=== PATIENT | male | born 1955 | race Caucasian/White ===

== ENCOUNTER → 2017-10-11 | Outpatient (CLI) | payer OTHER ==
[~2017-10-11] MED LIST: ACID CONTROL PO; ASPI-1012 PO; DULOXETINE PO; FLUT1AER IH; LEVO125T11 PO; LOSA50TA37 PO; PHEN100C9 PO; PHEN200C5 PO; TAMS0.4C32 PO; THEO400T3 PO
== END | disposition home or self-care (01) ==
LOC: OIH 11:42
PROVIDERS: ATTEND Family Medicine
DX: M47.892 Other spondylosis, cervical region (principal); M43.12 Spondylolisthesis, cervical region; M48.02 Spinal stenosis, cervical region; M25.78 Osteophyte, vertebrae
CPT/HCPCS: 72040; 72100

== ENCOUNTER → 2019-04-05 | Outpatient (CLI) | payer OTHER ==
[~2019-04-05] MED LIST changes: -LOSA50TA37 PO; +LOSA50TA64 PO
== END | disposition home or self-care (01) ==
LOC: RAH 13:45
PROVIDERS: ATTEND Family Medicine
DX: I82.611 Acute embolism and thrombosis of superficial veins of right upper extremity (principal)
CPT/HCPCS: 93971

== ENCOUNTER 2021-01-02 14:17 | Inpatient (IN) | payer OTHER ==
[~2021-01-02] VITALS: Ht 182.9 cm; Wt 98.4 kg
[2021-01-02 14:29] VITALS: BP 101/75
[2021-01-02 15:54] LABS: BASOPHILS % (AUTO) 0.4 % (0.0-5.0); EOSINOPHILS % (AUTO) 3.9 % (0.0-8.0); HEMATOCRIT 38.5 % (42-54); LYMPHOCYTES % (AUTO) 17.5 % (21.0-51.0); MEAN CORPUSCULAR HGB CONC 33.5 g/dL (32.0-36.0); MEAN CORPUSCULAR VOLUME 98.5 fL (79-99); MONOCYTES % (AUTO) 10.9 % (3.0-13.0); NEUTROPHILS % (AUTO) 67.1 % (40.0-77.0); PLATELET COUNT (AUTO) 225 K/uL (130-400); RED BLOOD CELL COUNT(AUTO) 3.91 MIL/uL (4.50-6.20)
[2021-01-02 16:04] LABS: CREATININE 1.4 mg/dL (0.5-1.5)
[2021-01-02] MEDS ORDERED: GLUCAGON 1MG KIT 1 MG ML IM PRN (17:00)
[2021-01-02] MEDS ORDERED: RENAL DOSE IV PRN (17:00)
[2021-01-02] MEDS ORDERED: DEXTROSE 50%-WATER 50 ML DISP.SYRIN IV PRN (17:00)
[2021-01-02] MEDS ORDERED: KETOROLAC 30MG VIAL (30MG/ML) IV ONE (17:00)
[2021-01-02] MEDS ORDERED: 0.9% NACL 250ML IVPB ONE (17:00)
[2021-01-02] MEDS ORDERED: ONDANSETRON 4MG INJ IVP PRN (17:00)
[2021-01-02] MEDS ORDERED: VANCOMYCIN 1G VIAL IVPB ONE (17:00)
[2021-01-02] MEDS ORDERED: VANCOMYCIN PROTOCOL PER PHARMACY IV SCH (17:00)
[2021-01-02] MEDS ORDERED: ZOSYN 3.375GM+NS 50ML 3.38 GM in 0.9%NACL 50ML 50 ML IV SCH (17:00)
[2021-01-02] MEDS ORDERED: 0.9%NACL 50ML 50 ML IV ONE (17:18)
[2021-01-02] MEDS: ZOSYN 3.375GM+NS 50ML 50 ML IV SCH ×2 (17:23→23:38)
[2021-01-02] MEDS ORDERED: ACETAMINOPHEN 325 MG TAB PO PRN (17:30)
[2021-01-02] MEDS ORDERED: COMPOUND IV REFRIGERATED 1 EACH IVSOLN MISC PRN (17:30)
[2021-01-02 18:36] VITALS: BP 113/78
[2021-01-02 19:30] VITALS: BP 118/58
[2021-01-02] MEDS ORDERED: INSULIN HUMULIN R 100 UNIT/ML 3ML SQ SCH (21:00)
[2021-01-02 23:00] VITALS: BP 124/74
[2021-01-02] MEDS ORDERED: 0.9%NACL 100ML 100 ML ONE (23:23)
[2021-01-02] MEDS: FAMOTIDINE 20MG TAB PO SCH (23:30)
[2021-01-02] MEDS: LACTULOSE 20 GM/30 ML UDCUP PO SCH (23:30)
[2021-01-03] VITALS (7 sets, daily range): BP systolic 107–155; BP diastolic 71–98
[2021-01-03] MEDS: VANCOMYCIN 1.25GM/NS 250ML IVPB SCH ×6 (01:00→21:02)
[2021-01-03 06:41] LABS: HEMATOCRIT 40.2 % (42-54); MEAN CORPUSCULAR HEMOGLOBIN 32.3 pg (27.0-33.0); MEAN CORPUSCULAR HGB CONC 32.6 g/dL (32.0-36.0); MEAN CORPUSCULAR VOLUME 99.3 fL (79-99); RED BLOOD CELL COUNT(AUTO) 4.05 MIL/uL (4.50-6.20); RED CELL DISTRIBUTION WIDTH 12.9 % (11.0-15.5)
[2021-01-03 07:05] LABS: CREATININE 1.4 mg/dL (0.5-1.5); POTASSIUM 3.9 mmol/L (3.5-5.1)
[2021-01-03] MEDS ORDERED: 0.9%NACL 50ML 50 ML IV ONE (07:07)
[2021-01-03] MEDS: ZOSYN 3.375GM+NS 50ML 50 ML IV SCH ×2 (07:23→16:39)
[2021-01-03] MEDS: IPRATROPIUM/ALBUTEROL SULFATE 3 ML SOLUTION IH PRN ×2 (07:24→15:43)
[2021-01-03 07:35] LABS: HEMOGLOBIN A1C 5.4 % (4.0-6.0)
[2021-01-03] MEDS: ASPIRIN 325MG TAB PO SCH (08:14)
[2021-01-03] MEDS: LOSARTAN 50 MG TABLET PO SCH (08:14)
[2021-01-03] MEDS: LACTULOSE 20 GM/30 ML UDCUP PO SCH ×2 (08:14→21:15)
[2021-01-03] MEDS: FAMOTIDINE 20MG TAB PO SCH ×2 (08:14→21:15)
[2021-01-03] MEDS ORDERED: LEVOTHYROXINE 125 MCG TABLET PO SCH (09:00)
[2021-01-03] MEDS ORDERED: PHENYTOIN SODIUM 100 MG ERCAP PO SCH (09:00)
[2021-01-03] MEDS: PHENYTOIN SODIUM 100 MG ERCAP PO SCH ×3 (09:25→21:15)
[2021-01-03] MEDS: MORPHINE 2 MG SYG IVP PRN (09:25)
[2021-01-03] MEDS: TAMSULOSIN HCL 0.4 MG CAP.ER.24H PO SCH (21:15)
[2021-01-04] VITALS (15 sets, daily range): BP systolic 122–164; BP diastolic 79–104
[2021-01-04] MEDS: ZOSYN 3.375GM+NS 50ML 50 ML IV SCH ×3 (01:00→18:15)
[2021-01-04] MEDS: IPRATROPIUM/ALBUTEROL SULFATE 3 ML SOLUTION IH PRN ×4 (01:23→23:26)
[2021-01-04] MEDS: LEVOTHYROXINE 125 MCG TABLET PO SCH (06:54)
[2021-01-04 07:39] LABS: HEMATOCRIT 38.8 % (42-54); MEAN CORPUSCULAR HEMOGLOBIN 32.3 pg (27.0-33.0); RED BLOOD CELL COUNT(AUTO) 3.96 MIL/uL (4.50-6.20); RED CELL DISTRIBUTION WIDTH 12.8 % (11.0-15.5); WHITE BLOOD COUNT (AUTO) 4.9 K/uL (4.8-10.8)
[2021-01-04 07:49] LABS: CREATININE 1.2 mg/dL (0.5-1.5); POTASSIUM 3.3 mmol/L (3.5-5.1)
[2021-01-04] MEDS: FAMOTIDINE 20MG TAB PO SCH ×2 (09:30→20:39)
[2021-01-04] MEDS: PHENYTOIN SODIUM 100 MG ERCAP PO SCH ×3 (09:30→20:39)
[2021-01-04] MEDS: ASPIRIN 325MG TAB PO SCH (09:30)
[2021-01-04] MEDS: LACTULOSE 20 GM/30 ML UDCUP PO SCH ×2 (09:30→20:39)
[2021-01-04] MEDS: LOSARTAN 50 MG TABLET PO SCH (09:30)
[2021-01-04] MEDS: VANCOMYCIN 1.25GM/NS 250ML IVPB SCH ×4 (11:00→21:16)
[2021-01-04] MEDS ORDERED: KCL 20 MEQ ERTAB PO ONE (13:30)
[2021-01-04] MEDS: TAMSULOSIN HCL 0.4 MG CAP.ER.24H PO SCH (20:39)
[2021-01-05] VITALS (7 sets, daily range): BP systolic 127–146; BP diastolic 78–98
[2021-01-05] MEDS ORDERED: 0.9% NACL 250ML 250 ML ONE (00:28)
[2021-01-05] MEDS: ZOSYN 3.375GM+NS 50ML 50 ML IV SCH ×3 (01:31→22:15)
[2021-01-05] MEDS: LEVOTHYROXINE 125 MCG TABLET PO SCH (05:34)
[2021-01-05] MEDS: LOSARTAN 50 MG TABLET PO SCH (08:24)
[2021-01-05] MEDS: FAMOTIDINE 20MG TAB PO SCH ×2 (08:24→20:33)
[2021-01-05] MEDS: PHENYTOIN SODIUM 100 MG ERCAP PO SCH ×3 (08:25→20:34)
[2021-01-05] MEDS: LACTULOSE 20 GM/30 ML UDCUP PO SCH ×2 (08:25→20:33)
[2021-01-05] MEDS: ASPIRIN 325MG TAB PO SCH (08:25)
[2021-01-05] MEDS: IPRATROPIUM/ALBUTEROL SULFATE 3 ML SOLUTION IH PRN (09:29)
[2021-01-05] MEDS ORDERED: KCL 20 MEQ ERTAB PO SCH (09:30)
[2021-01-05] MEDS: FLUTICASONE/VILANTEROL 1 EACH AER.POW.BA IH SCH (12:41)
[2021-01-05] MEDS: VANCOMYCIN 1.25GM/NS 250ML IVPB SCH ×4 (12:43→20:35)
[2021-01-05] MEDS ORDERED: LIDOCAINE HCL 1% 20 ML VIAL INJ SCH (19:30)
[2021-01-05] MEDS: TAMSULOSIN HCL 0.4 MG CAP.ER.24H PO SCH (20:33)
[2021-01-06 02:55] VITALS: BP 144/99
[2021-01-06 05:26] LABS: HEMATOCRIT 39.5 % (42-54); MEAN CORPUSCULAR HEMOGLOBIN 32.4 pg (27.0-33.0); MEAN CORPUSCULAR HGB CONC 32.9 g/dL (32.0-36.0); MEAN CORPUSCULAR VOLUME 98.5 fL (79-99); RED BLOOD CELL COUNT(AUTO) 4.01 MIL/uL (4.50-6.20); RED CELL DISTRIBUTION WIDTH 12.9 % (11.0-15.5); WHITE BLOOD COUNT (AUTO) 5.7 K/uL (4.8-10.8)
[2021-01-06] MEDS: ZOSYN 3.375GM+NS 50ML 50 ML IV SCH ×3 (05:26→21:05)
[2021-01-06] MEDS: LEVOTHYROXINE 125 MCG TABLET PO SCH (05:26)
[2021-01-06 05:36] LABS: CREATININE 1.1 mg/dL (0.5-1.5); POTASSIUM 3.9 mmol/L (3.5-5.1)
[2021-01-06 08:30] VITALS: BP 133/80
[2021-01-06] MEDS: LACTULOSE 20 GM/30 ML UDCUP PO SCH ×2 (09:00→20:29)
[2021-01-06] MEDS: FLUTICASONE/VILANTEROL 1 EACH AER.POW.BA IH SCH (10:03)
[2021-01-06] MEDS: ASPIRIN 325MG TAB PO SCH (10:04)
[2021-01-06] MEDS: FAMOTIDINE 20MG TAB PO SCH ×2 (10:05→20:20)
[2021-01-06] MEDS: LOSARTAN 50 MG TABLET PO SCH (10:05)
[2021-01-06] MEDS: PHENYTOIN SODIUM 100 MG ERCAP PO SCH ×3 (10:05→20:20)
[2021-01-06 11:00] VITALS: BP 138/87
[2021-01-06] MEDS: VANCOMYCIN 1.25GM/NS 250ML IVPB SCH ×4 (13:15→20:28)
[2021-01-06 16:00] VITALS: BP 133/89
[2021-01-06] MEDS ORDERED: LIDOCAINE HCL MPF 1% 5ML VIAL ONE (16:23)
[2021-01-06 19:51] VITALS: BP 125/84
[2021-01-06] MEDS: TAMSULOSIN HCL 0.4 MG CAP.ER.24H PO SCH (20:19)
[2021-01-06 23:45] VITALS: BP 125/85
[2021-01-07] MEDS: MORPHINE 2 MG SYG IVP PRN ×2 (00:38→05:59)
[2021-01-07 03:55] VITALS: BP 129/86
[2021-01-07] MEDS: LEVOTHYROXINE 125 MCG TABLET PO SCH (05:49)
[2021-01-07] MEDS: ZOSYN 3.375GM+NS 50ML 50 ML IV SCH ×2 (05:49→15:34)
[2021-01-07 05:58] LABS: HEMATOCRIT 38.8 % (42-54); MEAN CORPUSCULAR HEMOGLOBIN 33.2 pg (27.0-33.0); MEAN CORPUSCULAR HGB CONC 32.7 g/dL (32.0-36.0); MEAN CORPUSCULAR VOLUME 101.3 fL (79-99); RED BLOOD CELL COUNT(AUTO) 3.83 MIL/uL (4.50-6.20); RED CELL DISTRIBUTION WIDTH 12.8 % (11.0-15.5); WHITE BLOOD COUNT (AUTO) 5.8 K/uL (4.8-10.8)
[2021-01-07 06:06] LABS: CREATININE 1.2 mg/dL (0.5-1.5); POTASSIUM 4.1 mmol/L (3.5-5.1)
[2021-01-07 07:30] VITALS: BP 159/105
[2021-01-07] MEDS: LACTULOSE 20 GM/30 ML UDCUP PO SCH (09:00)
[2021-01-07] MEDS: ASPIRIN 325MG TAB PO SCH (09:12)
[2021-01-07] MEDS: PHENYTOIN SODIUM 100 MG ERCAP PO SCH ×2 (09:13→12:40)
[2021-01-07] MEDS: FAMOTIDINE 20MG TAB PO SCH (09:13)
[2021-01-07] MEDS: FLUTICASONE/VILANTEROL 1 EACH AER.POW.BA IH SCH (09:13)
[2021-01-07] MEDS: LOSARTAN 50 MG TABLET PO SCH (09:13)
[2021-01-07] MEDS: VANCOMYCIN 1.25GM/NS 250ML IVPB SCH ×2 (09:17)
[2021-01-07 11:00] VITALS: BP 140/101
[2021-01-07] MEDS ORDERED: IBUP-2070 PO (12:19)
[2021-01-07] MEDS ORDERED: RIFA300C4 PO (12:25)
[2021-01-07] MEDS ORDERED: SULF1TAB42 PO (12:25)
[2021-01-07] MEDS ORDERED: IBUPROFEN 600 MG TABLET PO PRN (12:30)
[2021-01-07 16:00] VITALS: BP 153/70
== END 2021-01-07 18:50 | disposition home or self-care (01) | DRG 603 ==
LOC: EDH 14:17 → EDHIP 14:18 → OBSVTOIN 14:18 → 3AH 01-04 21:27
PROVIDERS: ADMIT Internal Medicine Critical Care Medicine; ATTEND Internal Medicine Critical Care Medicine
DX: L02.31 Cutaneous abscess of buttock (principal); N18.9 Chronic kidney disease, unspecified; I12.9 Hypertensive chronic kidney disease with stage 1 through stage 4 chronic kidney disease, or unspecified chronic kidney disease; E87.6 Hypokalemia; Z68.28 Body mass index [BMI] 28.0-28.9, adult; J44.9 Chronic obstructive pulmonary disease, unspecified; N40.0 Benign prostatic hyperplasia without lower urinary tract symptoms; E03.9 Hypothyroidism, unspecified; Z96.642 Presence of left artificial hip joint; B19.20 Unspecified viral hepatitis C without hepatic coma; K59.00 Constipation, unspecified; B95.62 Methicillin resistant Staphylococcus aureus infection as the cause of diseases classified elsewhere; Z79.51 Long term (current) use of inhaled steroids; Z79.899 Other long term (current) drug therapy; Z85.819 Personal history of malignant neoplasm of unspecified site of lip, oral cavity, and pharynx; N28.9 Disorder of kidney and ureter, unspecified
CPT/HCPCS: 36415; 72192; 80048; 80202; 82948; 83036; 85025; 85027; 87070; 87076; 87077; 87186; 94640; 94664; G0378; J1885; J2405; J2543; J3370; J3490; J7050